=== PATIENT | female | born 1985 | race Hispanic/Latino ===

== ENCOUNTER → 2018-06-01 | Outpatient (REF) | payer MEDICAID ==
[~2018-06-01] VITALS: Ht 152.4 cm; Wt 77.1 kg
[~2018-06-01] MED LIST: AVIDOXY100 MG PO; CIPRO500 MG PO; CIPROFLOXACN500 MG PO; FERROUS SULF325 M2 PO; FLAGYL500 MG PO; FLEXERIL PO; INTEGRA F PO; IRON325 M1 PO; IRON325 MG OR; LORTAB5 PO; MACROBID100 MG PO; METRONIDAZOL0.752 EX; NAPROSYN500 MG OR; NAPROSYN500 MG PO; NO HOME MEDS; OBTREX DHA PO; ONDANSETRON4 MG OR; PRENATAL VITAMINS; ROBITUSSIN AC10 ML PO; SPRINTEC 2828 DAY PO; TERBINAFINE250 MG PO; TUBERSOL5 MG/0.1 M ID; ULTRAM50 M1 PO; ZITHROMAX250 MG PO; ZOFRAN ODT4 MG PO; [UNRECOGNIZED DRUG - OTHER] OR
[2018-06-01 13:31] VITALS: BP 106/48
== END | disposition home or self-care (01) ==
LOC: INF 08:45
PROVIDERS: ATTEND Physician Assistant
DX: D50.9 Iron deficiency anemia, unspecified (principal)

== ENCOUNTER → 2018-06-08 | Outpatient (REF) | payer MEDICAID ==
[2018-06-08 13:31] VITALS: BP 98/61
== END | disposition home or self-care (01) ==
LOC: INF 08:58
PROVIDERS: ATTEND Physician Assistant
DX: D50.9 Iron deficiency anemia, unspecified (principal)

== ENCOUNTER 2018-06-18 09:15 | Outpatient (REF) | payer MEDICAID ==
[2018-06-18 09:42] VITALS: BP 103/66
== END 2018-06-18 14:37 | disposition home or self-care (01) ==
LOC: INF 09:15
PROVIDERS: ATTEND Physician Assistant
DX: D50.9 Iron deficiency anemia, unspecified (principal)

== ENCOUNTER 2018-07-06 10:34 | Emergency (ER) | payer OTHER ==
[~2018-07-06] VITALS: Ht 152.4 cm; Wt 80.0 kg
[2018-07-06 11:02] LABS: HEMATOCRIT 39.6 % (37.0-47.0); HEMOGLOBIN 12.4 g/dl (12.0-16.0); IMMATURE GRANULOCYTES 0.2 % (0.0-5.0); MEAN CELL VOLUME 82.8 fL CALC (80.0-100.0); MEAN CORPUSCULAR HGB 25.9 pG CALC (26.0-32.0); MEAN CORPUSCULAR HGB CONC 31.3 g/L CALC (32.0-36.0); NEUT# 2.69 thou/uL (2.00-7.15); RED BLOOD COUNT 4.78 mill/uL (4.20-5.60); RED CELL DISTRI WIDTH 21.2 % (11.5-15.5)
[2018-07-06 11:19] LABS: ALBUMIN 4.1 g/dL (3.2-5.0); ALKALINE PHOSPHATASE 96 u/l (38-126); ANION GAP 14 (6-22 (CALC)); BILIRUBIN, TOTAL 0.8 mg/dL (0.0-1.4); BUN 7 mg/dL (7-17); BUN/CREATININE RATIO 11 (12-20 (CALC)); CARBON DIOXIDE 25 mmol/l (22-30); CHLORIDE 107 mmol/l (95-108); CREATININE 0.7 mg/dL (0.5-1.0); GFR > 60 ML/MIN (>=60 (CALC)); GFR FOR AFR.AMER. > 60 ML/MIN (>=60 (CALC)); LIPASE 80 u/l (23-300); POTASSIUM 3.7 mmol/l (3.5-5.1); SGOT/AST 25 u/l (14-36); SODIUM 142 mmol/l (137-146); TOTAL PROTEIN 7.5 g/dL (6.3-8.2)
[2018-07-06] MEDS ORDERED: PROTONIX40 M2 PO (12:09)
[2018-07-06 12:20] VITALS: BP 98/66
== END 2018-07-06 12:20 | disposition home or self-care (01) ==
LOC: ED 10:34
PROVIDERS: Emergency Medicine
DX: R07.89 Other chest pain (principal)

== ENCOUNTER 2022-08-04 01:45 | Emergency (ER) | payer OTHER ==
[~2022-08-04] VITALS: Ht 152.4 cm; Wt 83.0 kg
[~2022-08-04 01:45] MED LIST changes: +PROTONIX40 M2 PO
[2022-08-04 01:57] VITALS: BP 121/73
[2022-08-04 02:00] VITALS: BP 103/71
[2022-08-04 02:31] LABS: BASO% 0.4 % (0-3); HEMATOCRIT 38.5 % (37.0-47.0); HEMOGLOBIN 11.9 g/dl (12.0-16.0); IMMATURE GRANULOCYTES 0.1 % (0.0-5.0); LYMPH% 21.3 % (15-41); MEAN CORPUSCULAR HGB 26.3 pG CALC (26.0-32.0); MEAN CORPUSCULAR HGB CONC 30.9 g/dL CAL (32.0-36.0); MONO% 7.2 % (2-13); NEUT# 6.87 thou/uL (2.00-7.15); RED BLOOD COUNT 4.53 mill/uL (4.20-5.60); RED CELL DISTRI WIDTH 17.3 % (11.5-15.5)
[2022-08-04 02:33] LABS: URINE BILIRUBIN - DIPSTICK NEGATIVE (NEGATIVE); URINE BLOOD DIPSTICK LARGE (NEGATIVE); URINE COLOR RED; URINE GLUCOSE - DIPSTICK NEGATIVE (NEGATIVE); URINE KETONE TRACE mg/dL (NEGATIVE); URINE LEUK ESTERASE NEGATIVE (NEGATIVE); URINE PH 5.5 (4.5-8.0); URINE PROTEIN - DIPSTICK 100 mg/dL (NEG-TRACE); URINE SPECIFIC GRAVITY >=1.030
[2022-08-04 02:38] LABS: URINE NITRITE - DIPSTICK POSITIVE (Negative)
[2022-08-04 02:40] LABS: URINE BACTERIA FEW hpf; URINE RBC 50-100 RBC/hpf (0-5); URINE SQUAMOUS EPITHELIAL CELL FEW EPI/hpf (0-FEW)
[2022-08-04 02:45] VITALS: BP 108/73
[2022-08-04 02:50] LABS: ALBUMIN 3.9 g/dL (3.2-5.0); ALKALINE PHOSPHATASE 97 u/l (38-126); ANION GAP 11 (6-22 (CALC)); BUN 6 mg/dL (7-17); BUN/CREATININE RATIO 9 (12-20 (CALC)); CARBON DIOXIDE 25 mmol/l (22-30); CHLORIDE 109 mmol/l (95-108); CREATININE 0.7 mg/dL (0.5-1.0); GFR FOR AFR.AMER. > 60 ML/MIN (>=60 (CALC)); GFR OTHER RACES > 60 ML/MIN (>=60 (CALC)); LIPASE 131 u/l (23-300); POTASSIUM 3.8 mmol/l (3.5-5.1); SGOT/AST 27 u/l (14-36); SODIUM 141 mmol/l (137-146); TOTAL PROTEIN 7.4 g/dL (6.3-8.2)
[2022-08-04 02:51] LABS: BILIRUBIN, TOTAL 0.1 mg/dL (0.02-1.3)
[2022-08-04 03:00] VITALS: BP 117/78
[2022-08-04 03:15] VITALS: BP 117/77
[2022-08-04] MEDS ORDERED: PROMETHAZINE HY25 M1 PO (05:16)
[2022-08-04] MEDS ORDERED: BACTRIM DS1 TAB PO (05:16)
[2022-08-04 05:50] VITALS: BP 117/77
== END 2022-08-04 05:51 | disposition home or self-care (01) ==
LOC: ED 01:45
PROVIDERS: Family Medicine
DX: A08.4 Viral intestinal infection, unspecified (principal); N39.0 Urinary tract infection, site not specified
CPT/HCPCS: Q9967

== ENCOUNTER 2023-04-13 21:15 | Emergency (ER) | payer SELFPAY ==
[~2023-04-13] VITALS: Ht 152.4 cm; Wt 81.6 kg
[~2023-04-13 21:15] MED LIST changes: +BACTRIM DS1 TAB PO; +PROMETHAZINE HY25 M1 PO
[2023-04-13 21:30] VITALS: BP 151/93
[2023-04-13 21:52] LABS: BASO% 0.6 % (0-3); EOS% 4.8 % (0-8); HEMATOCRIT 39.5 % (37.0-47.0); IMMATURE GRANULOCYTES 0.1 % (0.0-5.0); LYMPH% 34.8 % (15-41); MEAN CORPUSCULAR HGB 28.6 pG CALC (26.0-32.0); MEAN CORPUSCULAR HGB CONC 32.9 g/dL CAL (32.0-36.0); MONO% 7.3 % (2-13); NEUT# 5.21 thou/uL (2.00-7.15); NEUT% 52.4 % (42-76); RED BLOOD COUNT 4.55 mill/uL (4.20-5.60); RED CELL DISTRI WIDTH 12.8 % (11.5-15.5)
[2023-04-13 21:59] LABS: MEAN CELL VOLUME 86.8 fL CALC (80.0-100.0)
[2023-04-13 22:12] LABS: ACT PARTIAL THROMBO TIME 26.7 SECONDS (20.0-32.5); PROTHROMBIN TIME 9.7 SECONDS (9.0-12.5)
[2023-04-13 22:27] LABS: ALBUMIN 4.2 g/dL (3.2-5.0); ALKALINE PHOSPHATASE 120 u/l (38-126); ANION GAP 10 (6-22 (CALC)); BUN 11 mg/dL (7-17); BUN/CREATININE RATIO 14 (12-20 (CALC)); CARBON DIOXIDE 27 mmol/l (22-30); CHLORIDE 107 mmol/l (95-108); CREATININE 0.8 mg/dL (0.5-1.0); GFR FOR AFR.AMER. > 60 ML/MIN (>=60 (CALC)); GFR OTHER RACES > 60 ML/MIN (>=60 (CALC)); POTASSIUM 3.5 mmol/l (3.5-5.1); SGOT/AST 39 u/l (14-36); SODIUM 140 mmol/l (137-146)
[2023-04-13 22:40] LABS: URINE BILIRUBIN - DIPSTICK Negative (NEGATIVE); URINE BLOOD DIPSTICK Negative (NEGATIVE); URINE COLOR Yellow; URINE GLUCOSE - DIPSTICK Negative (NEGATIVE); URINE KETONE Trace mg/dL (NEGATIVE); URINE LEUK ESTERASE Negative (NEGATIVE); URINE NITRITE - DIPSTICK Negative (Negative); URINE PH 6.5 (4.5-8.0); URINE PROTEIN - DIPSTICK Negative (NEG-TRACE); URINE SPECIFIC GRAVITY 1.025
[2023-04-13 22:40] LABS: BILIRUBIN, TOTAL 0.4 mg/dL (0.02-1.3)
[2023-04-13 23:03] VITALS: BP 109/73
[2023-04-13 23:16] VITALS: BP 116/71
[2023-04-13 23:31] VITALS: BP 121/82
[2023-04-13 23:46] VITALS: BP 123/66
[2023-04-14 00:06] VITALS: BP 123/66
== END 2023-04-14 00:34 | disposition home or self-care (01) | DRG 313 ==
LOC: ED 21:15
PROVIDERS: Emergency Medicine
DX: R07.9 Chest pain, unspecified (principal); R20.0 Anesthesia of skin; R20.2 Paresthesia of skin

== ENCOUNTER 2024-04-13 08:39 | Emergency (ER) | payer SELFPAY ==
[~2024-04-13] VITALS: Ht 152.4 cm; Wt 82.5 kg
[2024-04-13 08:43] VITALS: BP 136/93
[2024-04-13 09:01] VITALS: BP 110/69
[2024-04-13 09:06] LABS: BASO% 0.7 % (0-3); EOS% 4.9 % (0-8); HEMATOCRIT 38.5 % (37.0-47.0); HEMOGLOBIN 12.3 g/dl (12.0-16.0); IMMATURE GRANULOCYTES 0.1 % (0.0-5.0); LYMPH% 26.4 % (15-41); MEAN CELL VOLUME 84.1 fL CALC (80.0-100.0); MEAN CORPUSCULAR HGB 26.9 pG CALC (26.0-32.0); MEAN CORPUSCULAR HGB CONC 31.9 g/dL CAL (32.0-36.0); MONO% 6.5 % (2-13); NEUT# 5.38 thou/uL (2.00-7.15); NEUT% 61.4 % (42-76); RED BLOOD COUNT 4.58 mill/uL (4.20-5.60)
[2024-04-13] MEDS ORDERED: KETOROLAC TROMETHAMINE 30 MG/ML SDV IV ONE (09:10)
[2024-04-13] MEDS ORDERED: SODIUM CHLORIDE 0.9% 1,000 ML IV ONE (09:10)
[2024-04-13 09:31] VITALS: BP 126/59
[2024-04-13 09:49] LABS: ALBUMIN 3.4 g/dL (3.2-5.0); CREATININE 0.6 mg/dL (0.5-1.0); TOTAL PROTEIN 6.5 g/dL (6.3-8.2)
[2024-04-13 09:50] LABS: BILIRUBIN, TOTAL 0.7 mg/dL (0.02-1.3)
[2024-04-13 10:00] VITALS: BP 102/52
[2024-04-13 10:12] VITALS: BP 102/52
== END 2024-04-13 10:20 | disposition home or self-care (01) | DRG 103 ==
LOC: ED 08:39
PROVIDERS: Emergency Medicine
DX: R51.9 Headache, unspecified (principal)